=== PATIENT | female | born 1940 | race Caucasian/White ===

== ENCOUNTER 2020-12-04 13:12 | Outpatient (CLI) | payer MEDICARE, BC, OTHER | END 2020-12-04 13:13 | disposition home or self-care (01) | LOC: LAB 13:12 | PROVIDERS: ATTEND Student in an Organized Health Care Education/Training Program | DX: I48.0 Paroxysmal atrial fibrillation (principal) | CPT/HCPCS: 36416; 85610 ==

== ENCOUNTER 2020-12-10 15:20 | Outpatient (CLI) | payer MEDICARE, BC, OTHER ==
[2020-12-10 15:55] LABS: INR 1.9 (0.8-1.2); PT - PROTHROMBIN TIME 21.2 secs (9.9-12.6)
[2020-12-10 15:57] LABS: CALCIUM 8.1 mg/dL (8.5-10.3); CREATININE 0.9 mg/dL (0.4-1.0); POTASSIUM 4.5 mmol/L (3.5-5.0)
== END 2020-12-10 15:21 | disposition home or self-care (01) ==
LOC: LAB 15:20
PROVIDERS: ATTEND Family Medicine
DX: I38 Endocarditis, valve unspecified (principal); I48.91 Unspecified atrial fibrillation
CPT/HCPCS: 36415; 80048; 85610

== ENCOUNTER 2020-12-17 14:57 | Outpatient (CLI) | payer MEDICARE, BC, OTHER | END 2020-12-17 14:58 | disposition home or self-care (01) | LOC: LAB.N 14:57 | PROVIDERS: ATTEND Family Medicine | DX: I48.91 Unspecified atrial fibrillation (principal) | CPT/HCPCS: 85610 ==

== ENCOUNTER 2020-12-20 13:49 | Outpatient (CLI) | payer MEDICARE, BC, OTHER | END 2020-12-20 13:50 | disposition home or self-care (01) | LOC: LAB 13:49 | PROVIDERS: ATTEND Family Medicine | DX: I38 Endocarditis, valve unspecified (principal); I48.91 Unspecified atrial fibrillation | CPT/HCPCS: 85610 ==